=== PATIENT | female | born 1970 | race Caucasian/White ===

== ENCOUNTER 2024-03-05 14:48 | Emergency (ER) | payer BC, OTHER ==
[2024-03-05 14:53] VITALS: TEMP 97.5; O2SAT 100
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
[2024-03-05 16:07] VITALS: BP 143/84; PULSE 98; RESP 24
[2024-03-05] MEDS ORDERED: DUONEB 0.5-3 MG/3 ml Neb IH ONE (16:08)
[2024-03-05] MEDS: DUONEB 0.5-3 MG/3 ml Neb IH ONE (16:10)
[2024-03-05 16:23] LABS: VBG BASE EXCESS -1.9 (-2.0-2.0); VBG HCO3- 17.1 meq/L (22-28); VBG HEMOGLOBIN 12.7; VBG O2 SATURATION 82.3 (95-100); VBG POTASSIUM 3.8 (3.5-5.1)
[2024-03-05 16:24] LABS: VBG pH 7.61 (7.32-7.42)
[2024-03-05 16:25] LABS: VBG CARBOXYHEMOGLOBIN 8.5 % T HGB (0.0-6.9)
[2024-03-05] MEDS ORDERED: Ativan 2 MG/1 ML VIAL ONE (16:36)
[2024-03-05] MEDS ORDERED: Tessalon Perles 100 MG PO ONE ×2 (16:37→16:41)
[2024-03-05] MEDS: Tessalon Perles 100 MG PO ONE (16:38)
[2024-03-05] MEDS: Ativan 2 MG/1 ML VIAL IM ONE (16:38)
[2024-03-05] MEDS: Zithromax 500 MG/ 250 ML NaCl Premix 500 MG/250 ML IVPB IV STA (16:45)
[2024-03-05] MEDS: solu-MEDROL 125 MG, Sterile H2O 10 ml 2 ML IV ONE (16:46)
[2024-03-05] MEDS: Ativan 2 MG/1 ML VIAL IV ONE (16:46)
== END 2024-03-05 17:05 | disposition left against medical advice (07) ==
LOC: ED 14:48
DX: U07.1 COVID-19 (principal); J12.82 Pneumonia due to coronavirus disease 2019; R06.02 Shortness of breath; I10 Essential (primary) hypertension; E11.9 Type 2 diabetes mellitus without complications; Z79.84 Long term (current) use of oral hypoglycemic drugs; Z79.899 Other long term (current) drug therapy
CPT/HCPCS: 82805; 83605; 94640; 96372; 99283; J2060; A9270-GY